=== PATIENT | female | born 1955 | race African-American/Black ===

== ENCOUNTER 2020-10-24 16:59 | Inpatient (IN) | payer OTHER ==
[2020-10-24] MEDS ORDERED: LACTATED RINGERS SOLUTION 1000 ML INFUS.BAG IV ONE (17:47)
[2020-10-24 19:04] LABS: BASO % 0.8 % (0-2.0); EOS % 0.7 % (0-4.5); HEMATOCRIT 20.2 % (32.4-45.2); LYMPH % 3.8 % (8-40); MCH 28.8 pg (25.7-33.7); MCHC 31.3 g/dl (32.0-36.0); MEAN CELL VOLUME 92.1 fl (80-96); MEAN PLT VOLUME 7.5 fl (7.5-11.1); MONO % 5.1 % (3.8-10.2); NEUT % 89.6 % (42.8-82.8); PLATELET COUNT 249 10^3/uL (134-434); RDW 18.4 % (11.6-15.6); WHITE BLOOD COUNT 10.3 K/mm3 (4.0-10.0)
[2020-10-24 19:08] LABS: HEMOGLOBIN 6.3 GM/dL (10.7-15.3)
[2020-10-24 19:23] LABS: CHLORIDE 106 mmol/L (98-107); SODIUM 136 mmol/L (136-145)
[2020-10-24 19:26] LABS: ALBUMIN 2.3 g/dl (3.4-5.0); ANION GAP 10 MMOL/L (8-16); BLOOD UREA NITROGEN 29.2 mg/dL (7-18); CALCIUM 9.6 mg/dL (8.5-10.1); CO2 20 mmol/L (21-32); GLUCOSE,RANDOM 72 mg/dL (74-106); MAGNESIUM 1.7 mg/dL (1.8-2.4)
[2020-10-24 19:29] LABS: SGPT/ALT 13 U/L (13-61)
[2020-10-24 19:30] LABS: SGOT/AST 17 U/L (15-37)
[2020-10-24 19:31] LABS: BILIRUBIN,TOTAL 0.3 mg/dL (0.2-1); TOT PROT 7.2 g/dl (6.4-8.2)
[2020-10-24 19:32] LABS: ALK PHOS 70 U/L (45-117)
[2020-10-24] MEDS ORDERED: MAGNESIUM SULF 50% (8.12 MEQ/2 ML-1 GM VIAL) IVPB ONE (20:46)
[2020-10-24] MEDS ORDERED: MAGNESIUM 1GM/D5W - 1 GM/100 ML IVPB IVPB ONE (22:04)
[2020-10-24] MEDS ORDERED: ACETAMINOPHEN 325 MG TABLET (FP) PO PRN (22:32)
[2020-10-24] MEDS ORDERED: oxyCODONE HCL 5 MG TABLET PO PRN (22:32)
[2020-10-24] MEDS ORDERED: LACTATED RINGERS SOLUTION 1,000 ML IV SCH (22:45)
[2020-10-24] MEDS: MORPHINE SULFATE 2 MG/ML VIAL IVPUSH PRN (23:15)
[2020-10-24] MEDS ORDERED: MORPHINE SULFATE 2 MG/ML VIAL ONE (23:17)
[2020-10-25 08:12] LABS: BASO % 0.4 % (0-2.0); EOS % 0.6 % (0-4.5); HEMATOCRIT 23.5 % (32.4-45.2); HEMOGLOBIN 7.5 GM/dL (10.7-15.3); LYMPH % 4.9 % (8-40); MCH 28.6 pg (25.7-33.7); MCHC 32.1 g/dl (32.0-36.0); MEAN CELL VOLUME 89.1 fl (80-96); MEAN PLT VOLUME 8.2 fl (7.5-11.1); MONO % 4.6 % (3.8-10.2); NEUT % 89.5 % (42.8-82.8); PLATELET COUNT 228 10^3/uL (134-434); RBC 2.63 M/mm3 (3.60-5.2); RDW 18.4 % (11.6-15.6); WHITE BLOOD COUNT 8.7 K/mm3 (4.0-10.0)
[2020-10-25 08:14] LABS: INR 1.29 (0.83-1.09); PROTHROMBIN TIME (PATIENT) 15.7 SEC (9.7-13.0)
[2020-10-25 08:16] LABS: ACTIVATED PTT 27.1 SECONDS (25.2-36.5)
[2020-10-25 08:26] LABS: CALCIUM 9.1 mg/dL (8.5-10.1)
[2020-10-25 08:27] LABS: ALBUMIN 2.2 g/dl (3.4-5.0); BLOOD UREA NITROGEN 25.5 mg/dL (7-18); MAGNESIUM 1.6 mg/dL (1.8-2.4)
[2020-10-25] MEDS ORDERED: MAGNESIUM SULF 50% (8.12 MEQ/2 ML-1 GM VIAL) IVPB ONE (08:29)
[2020-10-25 08:31] LABS: BILIRUBIN,TOTAL 0.6 mg/dL (0.2-1); TOT PROT 6.6 g/dl (6.4-8.2)
[2020-10-25] MEDS: MORPHINE SULFATE 2 MG/ML VIAL IVPUSH PRN (09:03)
[2020-10-25] MEDS ORDERED: MORPHINE SULFATE 2 MG/ML VIAL IM PRN (12:43)
[2020-10-25] MEDS ORDERED: DOCUSATE SODIUM 100 MG CAPSULE (FP) PO PRN (12:43)
[2020-10-25] MEDS ORDERED: MAGNESIUM OXIDE 400 MG TABLET (FP) PO ONE ×2 (12:52→17:30)
[2020-10-25] MEDS: oxyCODONE HCL 5 MG TABLET PO PRN (14:01)
[2020-10-25] MEDS: NAPH,MB-DB/K PH,MBDB POWDER PACKET PO SCH ×2 (17:46→21:33)
[2020-10-25] MEDS: SODIUM HYPOCHLORITE 0.5% 473 ML- BULK BOTTLE TP SCH (17:46)
[2020-10-26 07:49] LABS: HEMATOCRIT 23.6 % (32.4-45.2); HEMOGLOBIN 7.6 GM/dL (10.7-15.3); MCH 28.7 pg (25.7-33.7); MCHC 32.2 g/dl (32.0-36.0); MEAN PLT VOLUME 8.1 fl (7.5-11.1); PLATELET COUNT 211 10^3/uL (134-434); RBC 2.65 M/mm3 (3.60-5.2); RDW 18.7 % (11.6-15.6); WHITE BLOOD COUNT 8.2 K/mm3 (4.0-10.0)
[2020-10-26 08:10] LABS: BLOOD UREA NITROGEN 17.5 mg/dL (7-18); CALCIUM 9.4 mg/dL (8.5-10.1); MAGNESIUM 1.4 mg/dL (1.8-2.4)
[2020-10-26 08:13] LABS: PHOSPHOROUS 2.1 mg/dL (2.5-4.9)
[2020-10-26 08:15] LABS: BILIRUBIN,TOTAL 0.5 mg/dL (0.2-1); TOT PROT 6.4 g/dl (6.4-8.2)
[2020-10-26] MEDS: NAPH,MB-DB/K PH,MBDB POWDER PACKET PO SCH ×3 (09:26→21:42)
[2020-10-26] MEDS: SODIUM HYPOCHLORITE 0.5% 473 ML- BULK BOTTLE TP SCH (09:26)
[2020-10-26] MEDS: MAGNESIUM OXIDE 400 MG TABLET (FP) PO SCH ×2 (13:16→21:42)
[2020-10-26] MEDS: AMINO ACIDS 4.25%/D5W 1,000 ML IV SCH (13:16)
[2020-10-26 15:26] VITALS: BMI 19.1
[2020-10-26] MEDS: oxyCODONE HCL 5 MG TABLET PO PRN (16:43)
[2020-10-26 19:51] LABS: URINE APPEARANCE CLEAR; URINE BILIRUBIN NEGATIVE (NEGATIVE); URINE COLOR YELLOW; URINE GLUCOSE (UA) NEGATIVE (NEGATIVE); URINE KETONE NEGATIVE (NEGATIVE); URINE LEUK ESTERASE NEGATIVE (NEGATIVE); URINE NITRITE NEGATIVE (NEGATIVE); URINE PROTEIN NEGATIVE (NEGATIVE); URINE UROBILINOGEN 0.2 mg/dL (0.2-1.0)
[2020-10-26] MEDS: MORPHINE SULFATE 2 MG/ML VIAL IVPUSH PRN (21:45)
[2020-10-26] MEDS: ACETAMINOPHEN 325 MG TABLET (FP) PO PRN (21:52)
[2020-10-27] MEDS ORDERED: MELATONIN 5 MG TABLETS PO ONE (02:54)
[2020-10-27] MEDS: oxyCODONE HCL 5 MG TABLET PO PRN ×3 (03:03→21:58)
[2020-10-27] MEDS: NAPH,MB-DB/K PH,MBDB POWDER PACKET PO SCH ×3 (06:28→21:45)
[2020-10-27] MEDS: MAGNESIUM OXIDE 400 MG TABLET (FP) PO SCH ×2 (09:16→21:45)
[2020-10-27] MEDS: ACETAMINOPHEN 325 MG TABLET (FP) PO PRN (09:17)
[2020-10-27] MEDS: SODIUM HYPOCHLORITE 0.5% 473 ML- BULK BOTTLE TP SCH (09:17)
[2020-10-27 09:28] LABS: HEMATOCRIT 22.7 % (32.4-45.2); HEMOGLOBIN 7.3 GM/dL (10.7-15.3); MCH 28.6 pg (25.7-33.7); MCHC 32.4 g/dl (32.0-36.0); MEAN CELL VOLUME 88.1 fl (80-96); MEAN PLT VOLUME 8.8 fl (7.5-11.1); PLATELET COUNT 203 10^3/uL (134-434); RBC 2.57 M/mm3 (3.60-5.2); RDW 17.9 % (11.6-15.6); WHITE BLOOD COUNT 7.9 K/mm3 (4.0-10.0)
[2020-10-27 10:07] LABS: CALCIUM 8.8 mg/dL (8.5-10.1)
[2020-10-27 10:08] LABS: BLOOD UREA NITROGEN 16.2 mg/dL (7-18); MAGNESIUM 1.3 mg/dL (1.8-2.4)
[2020-10-27 10:11] LABS: CREATININE 0.8 mg/dL (0.55-1.3)
[2020-10-27 10:12] LABS: PHOSPHOROUS 1.7 mg/dL (2.5-4.9)
[2020-10-27] MEDS: MORPHINE SULFATE 2 MG/ML VIAL IVPUSH PRN (13:07)
[2020-10-27] MEDS: AMINO ACIDS 4.25%/D5W 1,000 ML IV SCH (13:08)
[2020-10-27] MEDS: methaDONE HCL 10 MG TABLET PO SCH (16:52)
[2020-10-27] MEDS: SODIUM CHLORIDE 1,000 ML IV SCH (18:16)
[2020-10-28] MEDS ORDERED: MELATONIN 5 MG TABLETS PO ONE (00:40)
[2020-10-28] MEDS: NAPH,MB-DB/K PH,MBDB POWDER PACKET PO SCH ×3 (05:02→21:43)
[2020-10-28] MEDS: oxyCODONE HCL 5 MG TABLET PO PRN ×3 (05:11→21:43)
[2020-10-28] MEDS: SODIUM CHLORIDE 1,000 ML IV SCH ×2 (05:17→13:04)
[2020-10-28 08:03] LABS: HEMATOCRIT 21.5 % (32.4-45.2); HEMOGLOBIN 7.2 GM/dL (10.7-15.3); MCHC 33.3 g/dl (32.0-36.0); MEAN CELL VOLUME 87.1 fl (80-96); MEAN PLT VOLUME 8.2 fl (7.5-11.1); PLATELET COUNT 194 10^3/uL (134-434); RBC 2.47 M/mm3 (3.60-5.2); RDW 17.8 % (11.6-15.6); WHITE BLOOD COUNT 6.8 K/mm3 (4.0-10.0)
[2020-10-28 08:27] LABS: ALBUMIN 1.8 g/dl (3.4-5.0); BLOOD UREA NITROGEN 12.8 mg/dL (7-18); CALCIUM 8.3 mg/dL (8.5-10.1); MAGNESIUM 1.2 mg/dL (1.8-2.4)
[2020-10-28 08:30] LABS: CREATININE 0.7 mg/dL (0.55-1.3)
[2020-10-28 08:31] LABS: PHOSPHOROUS 1.7 mg/dL (2.5-4.9)
[2020-10-28 08:32] LABS: BILIRUBIN,TOTAL 0.4 mg/dL (0.2-1); TOT PROT 5.7 g/dl (6.4-8.2)
[2020-10-28] MEDS ORDERED: AMINO ACIDS 4.25%/D5W 1,000 ML IV SCH (09:00)
[2020-10-28] MEDS ORDERED: POTASSIUM PHOSPHATE 30 MM in DEXTROSE 5%-WATER - 500 ML IVPB ONE (10:00)
[2020-10-28] MEDS ORDERED: PT OWN MED DRAWER 7, Y5N ONE ×2 (10:29→15:45)
[2020-10-28] MEDS: methaDONE HCL 10 MG TABLET PO SCH (10:33)
[2020-10-28] MEDS: MAGNESIUM OXIDE 400 MG TABLET (FP) PO SCH ×2 (10:33→21:43)
[2020-10-28] MEDS: MORPHINE SULFATE 2 MG/ML VIAL IVPUSH PRN (10:34)
[2020-10-28] MEDS: SODIUM HYPOCHLORITE 0.5% 473 ML- BULK BOTTLE TP SCH (10:38)
[2020-10-28] MEDS ORDERED: MAGNESIUM SULF 50% (8.12 MEQ/2 ML-1 GM VIAL) IVPB ONE (14:52)
[2020-10-28] MEDS: SODIUM CHLORIDE 1 GM TABLET PO SCH ×2 (16:06→21:43)
[2020-10-28] MEDS: ACETAMINOPHEN 325 MG TABLET (FP) PO PRN (23:13)
[2020-10-28] MEDS: D5-NS + 20 MEQ KCL - 20 MEQ/1,000 ML INFUS.BAG IV SCH (23:14)
[2020-10-29] MEDS: MORPHINE SULFATE 2 MG/ML VIAL IVPUSH PRN ×3 (02:10→19:47)
[2020-10-29] MEDS: NAPH,MB-DB/K PH,MBDB POWDER PACKET PO SCH ×3 (05:32→22:39)
[2020-10-29] MEDS: oxyCODONE HCL 5 MG TABLET PO PRN ×3 (05:32→22:38)
[2020-10-29 07:36] LABS: CALCIUM 8.4 mg/dL (8.5-10.1)
[2020-10-29 07:37] LABS: BLOOD UREA NITROGEN 10.7 mg/dL (7-18); MAGNESIUM 1.5 mg/dL (1.8-2.4)
[2020-10-29 07:40] LABS: CREATININE 0.8 mg/dL (0.55-1.3); PHOSPHOROUS 2.7 mg/dL (2.5-4.9)
[2020-10-29 07:41] LABS: BILIRUBIN,TOTAL 0.4 mg/dL (0.2-1); TOT PROT 6.6 g/dl (6.4-8.2)
[2020-10-29] MEDS ORDERED: MAGNESIUM SULFATE IN WATER 2 GM/50 ML IVPB IVPB ONE (09:45)
[2020-10-29] MEDS: SODIUM CHLORIDE 1 GM TABLET PO SCH ×2 (10:23→22:38)
[2020-10-29] MEDS: MAGNESIUM OXIDE 400 MG TABLET (FP) PO SCH (10:23)
[2020-10-29] MEDS: methaDONE HCL 10 MG TABLET PO SCH (10:23)
[2020-10-29] MEDS: SODIUM HYPOCHLORITE 0.5% 473 ML- BULK BOTTLE TP SCH (10:23)
[2020-10-29 11:29] LABS: HEMOGLOBIN 8.5 GM/dL (10.7-15.3); MCHC 31.3 g/dl (32.0-36.0); MEAN CELL VOLUME 89.5 fl (80-96); PLATELET COUNT 218 10^3/uL (134-434); RBC 3.02 M/mm3 (3.60-5.2); WHITE BLOOD COUNT 8.4 K/mm3 (4.0-10.0)
[2020-10-29] MEDS: ACETAMINOPHEN 325 MG TABLET (FP) PO PRN ×2 (16:35→22:38)
[2020-10-29] MEDS: FOLIC ACID 1 MG TABLET (FP) PO SCH (16:35)
[2020-10-29] MEDS: D5-NS + 20 MEQ KCL - 20 MEQ/1,000 ML INFUS.BAG IV SCH (16:37)
[2020-10-29] MEDS ORDERED: PT OWN MED DRAWER 7, Y5N ONE (20:38)
[2020-10-29] MEDS ORDERED: MELATONIN 5 MG TABLETS PO ONE (21:00)
[2020-10-29] MEDS ORDERED: MAGNESIUM OXIDE 400 MG TABLET (FP) PO SCH (22:00)
[2020-10-30] MEDS: D5-NS + 20 MEQ KCL - 20 MEQ/1,000 ML INFUS.BAG IV SCH ×2 (02:48→14:29)
[2020-10-30] MEDS: MORPHINE SULFATE 2 MG/ML VIAL IVPUSH PRN ×2 (02:58→17:36)
[2020-10-30] MEDS: NAPH,MB-DB/K PH,MBDB POWDER PACKET PO SCH ×3 (05:12→21:03)
[2020-10-30] MEDS: oxyCODONE HCL 5 MG TABLET PO PRN ×3 (05:13→20:33)
[2020-10-30] MEDS: ACETAMINOPHEN 325 MG TABLET (FP) PO PRN ×2 (05:13→20:33)
[2020-10-30] MEDS: SODIUM HYPOCHLORITE 0.5% 473 ML- BULK BOTTLE TP SCH ×2 (05:24→09:24)
[2020-10-30 08:32] LABS: HEMATOCRIT 20.2 % (32.4-45.2); MCH 28.5 pg (25.7-33.7); MCHC 32.3 g/dl (32.0-36.0); MEAN CELL VOLUME 88.3 fl (80-96); MEAN PLT VOLUME 8.5 fl (7.5-11.1); PLATELET COUNT 184 10^3/uL (134-434); RBC 2.29 M/mm3 (3.60-5.2); RDW 17.5 % (11.6-15.6); WHITE BLOOD COUNT 8.3 K/mm3 (4.0-10.0)
[2020-10-30 08:39] LABS: HEMOGLOBIN 6.5 GM/dL (10.7-15.3)
[2020-10-30 08:55] LABS: BLOOD UREA NITROGEN 8.7 mg/dL (7-18)
[2020-10-30 08:57] LABS: MAGNESIUM 1.7 mg/dL (1.8-2.4)
[2020-10-30 08:58] LABS: CREATININE 0.9 mg/dL (0.55-1.3)
[2020-10-30 09:02] LABS: PHOSPHOROUS 2.1 mg/dL (2.5-4.9)
[2020-10-30] MEDS: FOLIC ACID 1 MG TABLET (FP) PO SCH (09:23)
[2020-10-30] MEDS: MAGNESIUM OXIDE 400 MG TABLET (FP) PO SCH (09:23)
[2020-10-30] MEDS: methaDONE HCL 10 MG TABLET PO SCH (09:23)
[2020-10-30] MEDS: SODIUM CHLORIDE 1 GM TABLET PO SCH ×2 (09:24→21:03)
[2020-10-30] MEDS: DRONABINOL 2.5 MG CAPSULE PO SCH (17:37)
[2020-10-31] MEDS: oxyCODONE HCL 5 MG TABLET PO PRN ×3 (06:15→21:59)
[2020-10-31] MEDS: NAPH,MB-DB/K PH,MBDB POWDER PACKET PO SCH ×3 (06:16→21:59)
[2020-10-31 09:20] LABS: HEMATOCRIT 31.5 % (32.4-45.2); HEMOGLOBIN 10.3 GM/dL (10.7-15.3); MCH 29.1 pg (25.7-33.7); MCHC 32.6 g/dl (32.0-36.0); MEAN CELL VOLUME 89.3 fl (80-96); MEAN PLT VOLUME 9.2 fl (7.5-11.1); PLATELET COUNT 207 10^3/uL (134-434); RBC 3.53 M/mm3 (3.60-5.2); RDW 16.4 % (11.6-15.6); WHITE BLOOD COUNT 10.7 K/mm3 (4.0-10.0)
[2020-10-31] MEDS ORDERED: PT OWN MED DRAWER 7, Y5N ONE (09:21)
[2020-10-31] MEDS: DRONABINOL 2.5 MG CAPSULE PO SCH (09:50)
[2020-10-31] MEDS: FOLIC ACID 1 MG TABLET (FP) PO SCH (09:50)
[2020-10-31] MEDS: MAGNESIUM OXIDE 400 MG TABLET (FP) PO SCH (09:50)
[2020-10-31] MEDS: SODIUM CHLORIDE 1 GM TABLET PO SCH ×2 (09:50→21:59)
[2020-10-31] MEDS: methaDONE HCL 10 MG TABLET PO SCH (09:51)
[2020-10-31] MEDS: SODIUM HYPOCHLORITE 0.5% 473 ML- BULK BOTTLE TP SCH (09:51)
[2020-10-31 10:05] LABS: CALCIUM 8.2 mg/dL (8.5-10.1)
[2020-10-31 10:06] LABS: BLOOD UREA NITROGEN 9.9 mg/dL (7-18); MAGNESIUM 1.7 mg/dL (1.8-2.4)
[2020-10-31 10:08] LABS: CREATININE 0.8 mg/dL (0.55-1.3)
[2020-10-31 10:09] LABS: PHOSPHOROUS 2.6 mg/dL (2.5-4.9)
[2020-10-31] MEDS: ACETAMINOPHEN 325 MG TABLET (FP) PO PRN (14:02)
[2020-10-31] MEDS ORDERED: MAGNESIUM SULF 50% (8.12 MEQ/2 ML-1 GM VIAL) IVPB ONE (15:54)
[2020-10-31] MEDS ORDERED: MAGNESIUM OXIDE 400 MG TABLET (FP) PO ONE (15:59)
[2020-10-31] MEDS: D5-NS + 20 MEQ KCL - 20 MEQ/1,000 ML INFUS.BAG IV SCH (16:01)
[2020-11-01] MEDS: ACETAMINOPHEN 325 MG TABLET (FP) PO PRN ×2 (01:11→22:40)
[2020-11-01] MEDS: oxyCODONE HCL 5 MG TABLET PO PRN ×2 (04:50→18:07)
[2020-11-01] MEDS: SODIUM HYPOCHLORITE 0.5% 473 ML- BULK BOTTLE TP SCH ×2 (04:51→10:16)
[2020-11-01] MEDS: NAPH,MB-DB/K PH,MBDB POWDER PACKET PO SCH ×3 (06:49→22:40)
[2020-11-01 07:59] LABS: HEMATOCRIT 29.5 % (32.4-45.2); HEMOGLOBIN 9.8 GM/dL (10.7-15.3); MCH 29.5 pg (25.7-33.7); MCHC 33.1 g/dl (32.0-36.0); MEAN PLT VOLUME 8.3 fl (7.5-11.1); PLATELET COUNT 200 10^3/uL (134-434); RBC 3.31 M/mm3 (3.60-5.2); RDW 16.5 % (11.6-15.6); WHITE BLOOD COUNT 10.2 K/mm3 (4.0-10.0)
[2020-11-01 08:21] LABS: BLOOD UREA NITROGEN 12.6 mg/dL (7-18); CALCIUM 8.1 mg/dL (8.5-10.1); MAGNESIUM 1.7 mg/dL (1.8-2.4)
[2020-11-01 08:25] LABS: PHOSPHOROUS 2.9 mg/dL (2.5-4.9)
[2020-11-01] MEDS ORDERED: PT OWN MED DRAWER 7, Y5N ONE (10:13)
[2020-11-01] MEDS: DRONABINOL 2.5 MG CAPSULE PO SCH (10:15)
[2020-11-01] MEDS: methaDONE HCL 10 MG TABLET PO SCH (10:15)
[2020-11-01] MEDS: SODIUM CHLORIDE 1 GM TABLET PO SCH ×2 (10:15→22:43)
[2020-11-01] MEDS: FOLIC ACID 1 MG TABLET (FP) PO SCH (10:16)
[2020-11-01] MEDS: MAGNESIUM OXIDE 400 MG TABLET (FP) PO SCH (10:16)
[2020-11-01] MEDS: D5-NS + 20 MEQ KCL - 20 MEQ/1,000 ML INFUS.BAG IV SCH (18:09)
[2020-11-02] MEDS: oxyCODONE HCL 5 MG TABLET PO PRN ×3 (01:47→20:15)
[2020-11-02] MEDS: ACETAMINOPHEN 325 MG TABLET (FP) PO PRN ×2 (05:50→23:06)
[2020-11-02] MEDS: NAPH,MB-DB/K PH,MBDB POWDER PACKET PO SCH ×3 (05:51→22:38)
[2020-11-02 08:05] LABS: HEMATOCRIT 26.1 % (32.4-45.2); HEMOGLOBIN 8.5 GM/dL (10.7-15.3); MCHC 32.5 g/dl (32.0-36.0); MEAN CELL VOLUME 89.1 fl (80-96); MEAN PLT VOLUME 8.6 fl (7.5-11.1); PLATELET COUNT 197 10^3/uL (134-434); RBC 2.93 M/mm3 (3.60-5.2); RDW 16.3 % (11.6-15.6)
[2020-11-02 08:33] LABS: BLOOD UREA NITROGEN 13.1 mg/dL (7-18); MAGNESIUM 1.4 mg/dL (1.8-2.4)
[2020-11-02 08:36] LABS: CREATININE 0.9 mg/dL (0.55-1.3)
[2020-11-02] MEDS ORDERED: PT OWN MED DRAWER 7, Y5N ONE (09:55)
[2020-11-02] MEDS: DRONABINOL 2.5 MG CAPSULE PO SCH (10:01)
[2020-11-02] MEDS: methaDONE HCL 10 MG TABLET PO SCH (10:01)
[2020-11-02] MEDS: SODIUM CHLORIDE 1 GM TABLET PO SCH ×2 (10:02→22:38)
[2020-11-02] MEDS: SODIUM HYPOCHLORITE 0.5% 473 ML- BULK BOTTLE TP SCH (10:03)
[2020-11-02] MEDS: FOLIC ACID 1 MG TABLET (FP) PO SCH (10:03)
[2020-11-02] MEDS: MAGNESIUM OXIDE 400 MG TABLET (FP) PO SCH (10:03)
[2020-11-03] MEDS: oxyCODONE HCL 5 MG TABLET PO PRN ×2 (02:17→09:55)
[2020-11-03] MEDS: NAPH,MB-DB/K PH,MBDB POWDER PACKET PO SCH (06:10)
[2020-11-03 06:19] VITALS: BP 119/63; PULSE 101; TEMP 98.8
[2020-11-03] MEDS ORDERED: PT OWN MED DRAWER 7, Y5N ONE (09:52)
[2020-11-03] MEDS: SODIUM CHLORIDE 1 GM TABLET PO SCH (09:55)
[2020-11-03] MEDS: methaDONE HCL 10 MG TABLET PO SCH (09:57)
[2020-11-03] MEDS: DRONABINOL 2.5 MG CAPSULE PO SCH (09:57)
[2020-11-03] MEDS: MAGNESIUM OXIDE 400 MG TABLET (FP) PO SCH (09:57)
[2020-11-03] MEDS: FOLIC ACID 1 MG TABLET (FP) PO SCH (09:57)
[2020-11-03] MEDS: SODIUM HYPOCHLORITE 0.5% 473 ML- BULK BOTTLE TP SCH (09:58)
== END 2020-11-03 11:30 | disposition hospice, inpatient (51) | DRG 754 ==
LOC: JER 16:59 → JERBED 19:04 → J7W 10-25 00:19
PROVIDERS: ADMIT Internal Medicine; ATTEND Internal Medicine
PROC: 30233N1 Transfusion of Nonautologous Red Blood Cells into Peripheral Vein, Percutaneous Approach (ICD-10-PCS; principal; 2020-10-24)
DX: C51.9 Malignant neoplasm of vulva, unspecified (principal); E43 Unspecified severe protein-calorie malnutrition; D62 Acute posthemorrhagic anemia; R64 Cachexia; Z68.1 Body mass index [BMI] 19.9 or less, adult; N17.9 Acute kidney failure, unspecified; E87.1 Hypo-osmolality and hyponatremia; I48.91 Unspecified atrial fibrillation; I10 Essential (primary) hypertension; J84.10 Pulmonary fibrosis, unspecified; R62.7 Adult failure to thrive; E87.6 Hypokalemia; E83.42 Hypomagnesemia; D63.8 Anemia in other chronic diseases classified elsewhere; E83.39 Other disorders of phosphorus metabolism; E88.09 Other disorders of plasma-protein metabolism, not elsewhere classified; Z86.718 Personal history of other venous thrombosis and embolism; Z85.528 Personal history of other malignant neoplasm of kidney; Z66 Do not resuscitate
CPT/HCPCS: 36415; 36430; 36511; 71045-TC-FY; 74240-TC-FY; 80048; 80053; 81003; 82272; 82550; 82607; 82728; 82746; 83010; 83540; 83550; 83615; 83735; 84100; 84484; 85025; 85027; 85045; 85610; 85730; 86850; 86900; 86901; 86922; 87086; 87186; 93005; 93010; 97116-GP; 97161-GP; 99285-25; C9803; P9038; P9058; U0003; U0005